=== PATIENT | female | born 1945 | race Caucasian/White ===

== ENCOUNTER 2019-02-17 20:42 | Emergency (ER) | payer MEDICARE ==
[~2019-02-17] VITALS: Ht 156.2 cm; Wt 89.8 kg
[2019-02-17 20:52] VITALS: BP 171/95
== END 2019-02-17 22:42 | disposition home or self-care (01) ==
LOC: ED 22:36
DX: J32.1 Chronic frontal sinusitis (principal); J01.10 Acute frontal sinusitis, unspecified
CPT/HCPCS: 99283